=== PATIENT | male | born 1995 | race Caucasian/White ===

== ENCOUNTER 2021-01-10 22:09 | Emergency (ER) | payer OTHER, MEDICAID, SELFPAY ==
[2021-01-10 22:16] VITALS: BP 134/95; PULSE 107; RESP 15; TEMP 36.7; O2SAT 100; BMI 19.6
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
[2021-01-10 23:02] LABS: Add Manual Diff / Slide Review NO; Basophils Absolute Auto 0 /uL (0-100); Basophils Percent Auto 0.3 % (0-2); Eosinophils Absolute Auto 0 /uL (0-450); Eosinophils Percent Auto 0.3 % (2-4); Hematocrit 37.9 % (41-53); Hemoglobin 12.7 g/dL (13.5-17.5); Lymphocytes Absolute Auto 900 /uL (1100-4500); Lymphocytes Percent Auto 8.3 % (25-40); Mean Corpuscular HGB Conc 33.6 % (30-36); Mean Corpuscular Volume 89.4 fL (80-100); Monocytes Absolute Auto 900 /uL (0-900); Monocytes Percent Auto 8.2 % (3-14); Neutrophils Absolute Auto 9100 /uL (1500-7000); Neutrophils Percent Auto 82.9 % (50-75); Platelet Count 164 X10^3/uL (150-400); Red Blood Cell Count 4.24 X10^6/uL (4.5-5.9); Red Cell Distribution Width 12.6 % (11.6-14.8)
[2021-01-10 23:14] LABS: BUN Creatinine Ratio 13.7 (6-22); Blood Urea Nitrogen 10 mg/dL (9-20); Calcium 8.8 mg/dL (8.4-10.2); Carbon Dioxide 29 mmol/L (22-32); Chloride 98 mmol/L (98-107); Estimated Glomerular Filt Rate > 60.0 mL/min (>60); Glucose 115 mg/dL (70-100); HEMOLYSIS < 15 (0-50); Potassium 3.8 mmol/L (3.4-5.1); Sodium 135 mmol/L (137-145)
[2021-01-10] MEDS: KETOROLAC 30 MG/ML VIAL IV (23:19)
[2021-01-10 23:50] LABS: RBC Urine None Seen (0-5/HPF)
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
[2021-01-11 00:21] LABS: Bilirubin Urine UA NEGATIVE (NEGATIVE); Color Urine UA YELLOW; Glucose Urine UA NEGATIVE (Negative); Ketones Urine UA NEGATIVE (NEGATIVE); Leukocyte Esterase Urine UA TRACE (NEGATIVE); Nitrite Urine UA NEGATIVE (Negative); Occult Blood Urine UA 2+ (Negative); Protein Urine UA TRACE (Negative); Specific Gravity Urine UA 1.025 (1.000-1.035); Urobilinogen Urine UA 0.2 E.U./dL (0.2); pH Urine UA 6.5 (4.5-8.0)
[2021-01-11 00:22] LABS: Appearance Urine UA Slightly Cloudy
[2021-01-11 00:23] LABS: Bacteria Urine Few (2-10); Culture Indicated Urine Specimen Cultured; Squamous Epithelial Cell Urine 0-1 /HPF (0-5/HPF); WBC Urine 30-100/HPF (0-5/HPF)
[2021-01-11 01:18] LABS: COVID19 -Nasal RAPID Negative (Negative)
[2021-01-11 02:07] VITALS: BP 111/60; PULSE 79; O2SAT 100
[2021-01-11] MEDS: MORPHINE 4 MG/ML INJ IV ×2 (02:17→03:35)
[2021-01-11 02:30] VITALS: BP 109/55; PULSE 84; O2SAT 98
[2021-01-11 03:00] VITALS: BP 108/59; PULSE 83; O2SAT 97
[2021-01-11 03:30] VITALS: BP 96/52; PULSE 91; RESP 18; O2SAT 96
== END 2021-01-11 03:40 | disposition short-term general hospital (02) ==
PROVIDERS: Emergency Provider Emergency Medicine
DX: S30.22XA Contusion of scrotum and testes, initial encounter (principal); M54.9 Dorsalgia, unspecified; V19.9XXA Pedal cyclist (driver) (passenger) injured in unspecified traffic accident, initial encounter; Z20.822 Contact with and (suspected) exposure to COVID-19
CPT/HCPCS: 36415; 71046; 72100; 76870; 80048; 81001; 85025; 87086; 87635; 96374; 96375; 96376; 99284; C9803; J1885; J2270